=== PATIENT | female | born 1960 | race African-American/Black ===

== ENCOUNTER → 2019-12-13 | Outpatient (CLI) | payer BC ==
[~2019-12-13] MED LIST: PRIL40 PO
== END ==
LOC: MC.RAD 13:00
DX: R92.2 Inconclusive mammogram (principal)

== ENCOUNTER → 2021-03-03 | Outpatient (CLI) | payer BC | LOC: MC.RAD 14:05 | DX: Z12.31 Encounter for screening mammogram for malignant neoplasm of breast (principal) ==

== ENCOUNTER 2021-12-03 08:25 | Day surgery (SDC) | payer BC ==
[~2021-12-03] VITALS: Ht 160 cm; Wt 77.7 kg
[2021-12-03] MEDS ORDERED: ZOCOR 20MG20 MG PO (08:49)
[2021-12-03] MEDS ORDERED: VERELAN PM200 MG PO (08:50)
[2021-12-03] MEDS ORDERED: HCTZ 25MG TAB25 MG PO (08:51)
[2021-12-03 09:08] VITALS: BP 146/96; PULSE 76; TEMP 98.5
[2021-12-03 10:05] VITALS: BP 134/89; PULSE 75; TEMP 98
[2021-12-03 10:20] VITALS: BP 141/81; PULSE 73
--- NOTE | 2021-12-03 10:35 | NUR ---
1005-PT TO BAY 2 PER CART. VS OBTAINED. CALL LIGHT WITHIN REACH. PT TOLERATING JUICE. 1025-IV DC'D 1030-DISCHARGE EDUCATION COMPLETED WITH PT. VERBALIZED UNDERSTANDING OF HOME AND FOLLOW UP CARE. ALL QUESTIONS ANSWERED. DISCHARGE PAPERWORK GIVEN TO PT. 1035-PT OFF UNIT PER WHEELCHAIR. PT DISCHARGED TO HOME WITH BROTHER PER PERSONAL VEHICLE.
== END 2021-12-03 10:35 | disposition home or self-care (01) ==
LOC: SDCO 08:25
DX: Z12.11 Encounter for screening for malignant neoplasm of colon (principal); D12.2 Benign neoplasm of ascending colon; D12.3 Benign neoplasm of transverse colon; K57.30 Diverticulosis of large intestine without perforation or abscess without bleeding; I10 Essential (primary) hypertension; K21.9 Gastro-esophageal reflux disease without esophagitis; Z79.899 Other long term (current) drug therapy
CPT/HCPCS: J2704; J7120